=== PATIENT | male | born 1980 | race Caucasian/White ===

== ENCOUNTER 2018-07-16 09:49 | Day surgery (SDC) | payer OTHER ==
[~2018-07-16 09:49] MED LIST: Lactated Ringers 1,000 ML IV SCH; Lidocaine 1%/Sod Bicarbonate in NS 8.4% 1 ML Syringe IDERM PRN; Sodium Chloride 0.9% 10 ML Syringe FLUSH PRN
[2018-07-16] MEDS ORDERED: Bupivacaine 0.25% 30 ML SDV ONE (10:57)
[2018-07-16] MEDS ORDERED: Dexamethasone 4 MG/ML 5 ML MDV ONE (11:03)
[2018-07-16] MEDS ORDERED: ceFAZolin 1 GM Vial ONE (11:03)
[2018-07-16] MEDS ORDERED: Lidocaine 1% 6 ML ONE (11:03)
[2018-07-16] MEDS ORDERED: Lactated Ringers 1,000 ML ONE ×2 (11:03→12:53)
[2018-07-16] MEDS ORDERED: Propofol 200 MG/20 ML SDV ONE ×2 (11:03→12:00)
[2018-07-16] MEDS ORDERED: Ondansetron 4 MG/2 ML SDV ONE (11:03)
[2018-07-16] MEDS ORDERED: Ketorolac 30 MG/ML SDV ONE ×2 (11:03→13:48)
[2018-07-16] MEDS ORDERED: Midazolam 1 MG/ML 2 ML SDV ONE (11:04)
[2018-07-16] MEDS ORDERED: HYDROmorphone 0.5 MG/0.5 ML Syringe ONE ×2 (11:04→12:18)
[2018-07-16] MEDS ORDERED: fentaNYL 250 MCG/5 ML SDV ONE (11:04)
--- NOTE | 2018-07-16 11:22 | PCM.PREANE ---
Preanesthetic Assessment - Anesthesia/Transfusion/Family Hx Anesthesia History: Prior Anesthesia Without Reaction Family History of Anesthesia Reaction: No Transfusion History: No Prior Transfusion(s) Intubation History: Unknown - Review of Systems General: No Symptoms Pulmonary: No Symptoms (ETOH: 5-6 drinks/week,) Cardiovascular: No Symptoms (HTN) Gastrointestinal: No Symptoms (GERD, nondiabetic gastroparesis history of noted. ) Neurological: Tingling (right sided more but bilateral Carpal Tunnel Syndrome) Other: Reports: Liver Problems (elevated liver enzymes noted), Depression - Physical Assessment NPO Status Date: 07/15/18 NPO Status Time: 22:00 Pulse: 84 O2 Sat by Pulse Oximetry: 98 Respiratory Rate: 16 Blood Pressure: 137/89 Temperature: 36.4 C Vital Signs: Last Vital Signs Temp 36.4 C 07/16/18 09:55 Pulse 84 07/16/18 09:55 Resp 16 07/16/18 09:55 BP 137/89 07/16/18 09:55 Pulse Ox 98 07/16/18 09:55 Height: 1.8 m Weight: 96.615 kg ASA Class: 2 Mental Status: Alert & Oriented x3 Airway Class: Mallampati = 3 Dentition: Reports: Normal Dentition, Caries Thyro-Mental Finger Breadths: 3 Mouth Opening Finger Breadths: 3 ROM/Head Extension: Full Lungs: Clear to Auscultation, Normal Respiratory Effort Cardiovascular: Regular Rate, Regular Rhythm, No Murmurs - Lab Values: Laboratory Last Values MRSA (PCR) Negative 07/14/18 09:08 All lab values reviewed and noted and within acceptable ranges to proceed with scheduled procedure. - Imaging/EKG Impressions: EKG: NSR rate=87 - Allergies Allergies/Adverse Reactions: Allergies Allergy/AdvReac Type Severity Reaction Status Date / Time cranberry Allergy Airway Verified 07/15/18 12:54 Tightness - Anesthesia Plan Pre-Op Medication Ordered: None - Acknowledgements Anesthesia Type Planned: General Anesthesia Pt an Appropriate Candidate for the Planned Anesthesia: Yes Alternatives and Risks of Anesthesia Discussed w Pt/Guardian: Yes Pt/Guardian Understands and Agrees with Anesthesia Plan: Yes PreAnesthesia Questionnaire HEENT History: Reports: Impaired Vision, Other (See Below) Other HEENT History: wears glasses Cardiovascular History: Reports: Hypertension Respiratory History: Reports: None Gastrointestinal History: Reports: Other (See Below) Other Gastrointestinal History: acid reflux, gastroparesis Genitourinary History: Reports: None 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 Musculoskeletal History: Reports: Other (See Below) Other Musculoskeletal History: triceps tendon rupture Neurological History: Reports: None Psychiatric History: Reports: Depression Endocrine/Metabolic History: Reports: None Hematologic History: Reports: None Immunologic History: Reports: None Oncologic (Cancer) History: Reports: None Dermatologic History: Reports: None - Past Surgical History Head Surgeries/Procedures: Reports: None Cardiovascular Surgical History: Reports: None Respiratory Surgical History: Reports: None GI Surgical History: Reports: EGD Female Surgical History: Reports: None Male Surgical History: Reports: None Endocrine Surgical History: Reports: None Neurological Surgical History: Reports: None Musculoskeletal Surgical History: Reports: None Oncologic Surgical History: Reports: None - SUBSTANCE USE Smoking Status *Q: Never Smoker Recreational Drug Use History: No - HOME MEDS Home Medications: Home Meds Lisinopril 10 mg PO DAILY 07/15/18 [History] Ranitidine HCl [Zantac] 150 mg PO BID 07/15/18 [History] buPROPion HCl [Wellbutrin Xl] 300 mg PO DAILY 07/15/18 [History] - CURRENT (IN HOUSE) MEDS Current Meds: Current Medications Lactated Ringer's (Ringers, Lactated) 1,000 mls @ 125 mls/hr IV ASDIRECTED KRYS Stop: 07/16/18 23:00 Last Admin: 07/16/18 10:15 Dose: 125 mls/hr Lidocaine/Sodium Bicarbonate (Buffered Lidocaine 1% In Ns 8.4%) 0.25 ml IDERM ONETIME PRN PRN Reason: Prior to IV Start Stop: 07/16/18 18:00 Last Admin: 07/16/18 10:15 Dose: 0.25 ml Sodium Chloride (Saline Flush) 10 ml FLUSH ASDIRECTED PRN PRN Reason: Keep Vein Open Stop: 07/16/18 18:00 Discontinued Medications Bupivacaine HCl (Marcaine 0.25%) Confirm Administered Dose 30 ml .ROUTE .STK- MED ONE Stop: 07/16/18 10:58 Cefazolin Sodium (Ancef) Confirm Administered Dose 2 gm .ROUTE .STK-MED ONE Stop: 07/16/18 11:04 Dexamethasone (Dexamethasone) Confirm Administered Dose 20 mg .ROUTE .STK-MED ONE Stop: 07/16/18 11:04 Fentanyl (Sublimaze) Confirm Administered Dose 250 mcg .ROUTE .STK-MED ONE Stop: 07/16/18 11:05 Hydromorphone HCl (Dilaudid) Confirm Administered Dose 0.5 mg .ROUTE .STK-MED ONE Stop: 07/16/18 11:05 Lidocaine HCl (Xylocaine-Mpf 1%) Confirm Administered Dose 6 mls @ as directed .ROUTE .ST-MED ONE Stop: 07/16/18 11:04 Lactated Ringer's (Ringers, Lactated) Confirm Administered Dose 1,000 mls @ as directed .ROUTE .ST-MED ONE Stop: 07/16/18 11:04 Ketorolac Tromethamine (Toradol) Confirm Administered Dose 30 mg .ROUTE .ST- MED ONE Stop: 07/16/18 11:04 Midazolam HCl (Versed 1 Mg/Ml) Confirm Administered Dose 2 mg .ROUTE .STK-MED ONE Stop: 07/16/18 11:05 Ondansetron HCl (Zofran) Confirm Administered Dose 4 mg .ROUTE .STK-MED ONE Stop: 07/16/18 11:04 Propofol (Diprivan 20 Ml) Confirm Administered Dose 200 mg .ROUTE .STK-MED ONE Stop: 07/16/18 11:04
[2018-07-16] MEDS ORDERED: Famotidine 20 MG/2 ML SDV IVPUSH ONE (11:36)
[2018-07-16] MEDS ORDERED: Succinylcholine/Normal Saline 100 MG/5 ML Syringe ONE (11:54)
[2018-07-16] MEDS ORDERED: Rocuronium 50 MG/5 ML Vial ONE (11:54)
[2018-07-16] MEDS ORDERED: HYDROmorphone 0.5 MG/0.5 ML Syringe IVPUSH PRN (12:12)
[2018-07-16] MEDS ORDERED: diphenhydrAMINE 50 MG/ML SDV IVPUSH PRN (12:12)
[2018-07-16] MEDS ORDERED: ePHEDrine 50 MG/ML SDV IVPUSH PRN (12:12)
[2018-07-16] MEDS ORDERED: Ondansetron 4 MG/2 ML SDV IVPUSH PRN (12:12)
[2018-07-16] MEDS ORDERED: Phenylephrine 1 MG in Sodium Chloride 0.9% 10 ML IV SCH (12:15)
[2018-07-16] MEDS ORDERED: Neostigmine Methylsulfate 1 MG/ML 5 ML Syringe ONE (12:38)
[2018-07-16] MEDS ORDERED: Phenylephrine/Normal Saline 100 MCG/ML 10 ML Syringe ONE (12:46)
[2018-07-16] MEDS ORDERED: ePHEDrine/Normal Saline 25 MG/5 ML Syringe ONE (12:51)
[2018-07-16] MEDS: fentaNYL 100 MCG/2 ML SDV IVPUSH PRN ×2 (13:50→14:03)
--- NOTE | 2018-07-16 14:01 | CR ---
Left elbow: Two fluoroscopic spot views were obtained of the left elbow utilizing C-arm device. Comparison: Prior MRI left elbow exam of 06/23/18. Study shows triceps tendon repair with lucency within the olecranon process compatible with anchoring of this tendon. Fluoroscopy time is given as 6.9 seconds. Impression: 1. Procedural study showing triceps tendon reattachment. Diagnostic code #2
--- NOTE | 2018-07-16 14:07 | PCM.POSTAN ---
POST ANESTHESIA ASSESSMENT - MENTAL STATUS Mental Status: Alert, Oriented - VITAL SIGNS Pulse Rate: 94 SaO2: 94 Resp Rate: 13 Blood Pressure: 136/99 Temperature: 36.9 C - RESPIRATORY Respiratory Status: Respiratory Rate WNL, Airway Patent, O2 Saturation Stable, Supplemental Oxygen - CARDIOVASCULAR CV Status: Pulse Rate WNL, Blood Pressure Stable - GASTROINTESTINAL GI Status: No Symptoms - PAIN Pain Score: 5 - POST OP HYDRATION Hydration Status: Adequate & Stable
[2018-07-16] MEDS ORDERED: Acetaminophen/HYDROcodone 325-5 MG Tab PO PRN (14:38)
--- NOTE | 2018-07-20 07:16 | PCM.OPNOTE ---
- General Post-Op/Procedure Note Date of Surgery/Procedure: 07/16/18 Operative Procedure(s): left triceps tendon rupture repair Pre Op Diagnosis: left distal triceps tendon rupture Post-Op Diagnosis: Same Anesthesia Technique: General LMA, Local Primary Surgeon: Alan Hancock Anesthesia Provider: Zulema Reyes Senior Sales Operations Manager: Twila Costello in mLs: 10 Complications: None Condition: Good
--- NOTE | 2018-07-20 10:29 | OR ---
DATE OF OPERATION: 07/16/2018 SURGEON: Alan Hancock MD OPERATION PERFORMED: Left triceps tendon rupture repair. PREOPERATIVE DIAGNOSIS: Left distal triceps tendon rupture. POSTOPERATIVE DIAGNOSIS: Left distal triceps tendon rupture. ANESTHESIA: General LMA with local. ANESTHESIA PROVIDER: Zulema Reyes CRNA. CNC APPLICATIONS ENGINEER: Twila Costello LPN. ESTIMATED BLOOD LOSS: 10 mL. COMPLICATIONS: None. CONDITION: Stable. DESCRIPTION OF PROCEDURE: The patient was identified in the preoperative holding area. Proper site was marked and identified by the surgeon. The patient was taken back to the operating theater where after adequate anesthesia, the patient's left upper extremity was sterilely prepped and draped in the usual sterile fashion. OR time-out was performed. The patient received 2 g IV Ancef. A sterile tourniquet was then applied to left upper extremity and tourniquet was insufflated 250 mmHg after the extremity was exsanguinated. Standard curvilinear incision was made over the olecranon. This was taken down to the triceps fascia. Triceps fascia was identified as well as the triceps tendon rupture, which was more on the medial side than the lateral. At this time, a good sharp dissection was done down to the olecranon and the bony surface was roughened. Two proximal anchors were placed on the tip of the olecranon and two 4.75 mm Arthrex SwiveLock anchors were placed, loaded with FiberTape as well as FiberWire. The 4 limbs of FiberWire were then passed proximally through the tendinous tissue on the tear and the FiberTape was passed proximally. The FiberWire was then passed distally through the tendon in the tear. At this time, the FiberWire was tied to the distal anchors. Two more anchors were then placed distally. The patient was noted to have significantly sclerotic bone that were found to be in good position and now intra-articularly on both AP and lateral fluoroscopic views. Two more 4.75 mm Arthrex SwiveLock anchors were then placed and these were then tensioned. The patient had good excursion of the triceps with adequate repair. At this time, adequate saline was irrigated through the wound. 2-0 Vicryl was used subcutaneously. Nathalia used for the skin. The patient had 0.25% Marcaine injected and was placed in a posterior slab splint and sterile dressing and sent to PACU in stable condition. KAMARI /[id number]
== END 2018-07-16 16:20 | disposition home or self-care (01) ==
LOC: JD.SDS 09:49
PROVIDERS: ATTEND Orthopaedic Surgery
DX: S46.312A Strain of muscle, fascia and tendon of triceps, left arm, initial encounter (principal); I10 Essential (primary) hypertension; K21.9 Gastro-esophageal reflux disease without esophagitis; F32.9 Major depressive disorder, single episode, unspecified; W00.0XXA Fall on same level due to ice and snow, initial encounter; Z91.018 Allergy to other foods; Z79.899 Other long term (current) drug therapy
CPT/HCPCS: 24342; 76000; 87641; A9270; C1713; J0330; J0690; J1100; J1170; J1885; J2001; J2250; J2370; J2405; J2704; J2710; J3010; J3490; J7050; J7120; 01710

== ENCOUNTER 2019-12-13 16:39 | Emergency (ER) | payer OTHER ==
--- NOTE | 2019-12-13 17:18 | EDM.PDOC ---
<LiliaEllis Gudelia - Last Filed: 12/13/19 17:10> ED HPI GENERAL MEDICAL PROBLEM - General Chief Complaint: Wound Recheck Stated Complaint: SURGICAL INCISION BLEEDING Time Seen by Provider: 12/13/19 16:53 Source of Information: Reports: Patient History Limitations: Reports: No Limitations - History of Present Illness INITIAL COMMENTS - FREE TEXT/NARRATIVE: Hermes is a 39 YO male that presents to the ED with bleeding from a surgical incision. He had tricep tendon repair on December 02, 2019 in [place]. Since surgery, he has noticed small amounts of bleeding from the olecranon region of his right elbow. Blood is dark and oozing in nature. Wound only bleeds if he flexes his arm to greater than 90 degrees. He has had to change bandages about twice daily. He denies any pain, tenderness, or limited mobility of the joint. Duration: Day(s): Location: Reports: Upper Extremity, Right Worsens with: Reports: Movement - Related Data Allergies Allergy/AdvReac Type Severity Reaction Status Date / Time cranberry Allergy Airway Verified 12/13/19 16:55 Tightness Home Meds: Home Meds Lisinopril 10 mg PO DAILY 07/15/18 [History] buPROPion HCL [Wellbutrin Xl] 300 mg PO DAILY 07/15/18 [History] Escitalopram [Lexapro] 10 mg PO DAILY 12/13/19 [History] Past Medical History Other HEENT History: wears glasses Other Gastrointestinal History: acid reflux, gastroparesis Musculoskeletal History: Reports: Other (See Below) Other Musculoskeletal History: triceps tendon rupture - Past Surgical History Musculoskeletal Surgical History: Reports: Other (See Below) Other Musculoskeletal Surgeries/Procedures:: tricep tendon repair Social & Family History - Tobacco Use Smoking Status *Q: Never Smoker Second Hand Smoke Exposure: No - Caffeine Use Caffeine Use: Reports: Coffee - Recreational Drug Use Recreational Drug Use: No ED ROS GENERAL - Review of Systems Review Of Systems: See Below (Mindy) Musculoskeletal: Reports: Other (Bleed at surgical site on right elbow). Denies: Joint Pain, Joint Swelling, Muscle Pain, Muscle Stiffness Skin: Reports: Bruising (Post surgical bruise on right bicep.), Wound ED EXAM, SKIN/RASH Exam: See Below Exam Limited By: No Limitations General Appearance: Alert, No Apparent Distress Extremities: Normal Range of Motion, Redness, Other (Dark red oozing blood from surgical incision when elbow flexed past 90 degrees. ). No: Joint Swelling, Arm Pain, Increased Warmth Skin: Warm, Dry, Normal Color Departure - Departure Disposition: Home, Self-Care 01 Clinical Impression: Hemorrhage from wound - Discharge Information Instructions: How to Change Your Wound Dressing, [id number] Referrals: Laila Lockett PA-C [Primary Care Provider] - Forms: ED Department Discharge Additional Instructions: You were evaluated in the ER today regarding your bleeding from your surgical wound. This area was repaired with Dermabond, to help promote healing and hopefully stop the bleeding. Recommend you follow-up with orthopedic surgery, Dr. Hancock, for recheck of the wound and to make sure everything is getting better as expected. These call his office to get an appointment, . Please return to the ER at any time if symptoms change or worsen. Sepsis Event Note (ED) - Evaluation Sepsis Screening Result: No Definite Risk <Renée Mathias - Last Filed: 12/13/19 17:44> ED WOUND PROCEDURES - Laceration/Wound Repair Right Posterior Elbow Laceration/Wound Length In cm: 0.5 Appearance: Superficial, Clean Distal NVT: Neuro & Vascular Intact, No Tendon Injury Skin Prep: Chlorhexidine (Hibiciens), Saline Wound Exploration, Debridement, Revision: No Foreign Material Found Sterile Dressing Applied: Nurse Tetanus Status Addressed: Yes Complications: None Progress/Comments: topical Dermabond was placed on the wound to help stop the bleeding, he will follow up with his orthopedic surgeon, as he states he will be going back to [place]. Course - Vital Signs Last Recorded V/S: Last Vital Signs Temp 98.6 F 12/13/19 16:53 Pulse 78 12/13/19 16:53 Resp 16 12/13/19 16:53 BP 142/101 H 12/13/19 16:53 Pulse Ox 100 12/13/19 16:53 - Re-Assessments/Exams Free Text/Narrative Re-Assessment/Exam: 12/13/19 17:26 I have read and reviewed the student's HPI and examined the patient and agree with PRASHANTH Adkins-student. The patient's wound has a scant amount of dark red blood coming from the distal portion of the wound. Will try to apply some Dermabond to this area to see if this helps stop the bleeding, and have him follow-up with Ortho if he keeps having further issues. Departure - Departure Time of Disposition: 17:27 Condition: Good - Discharge Information *PRESCRIPTION DRUG MONITORING PROGRAM REVIEWED*: No *COPY OF PRESCRIPTION DRUG MONITORING REPORT IN PATIENT CHRISTINE: No Sepsis Event Note (ED) - Focused Exam Vital Signs: Vital Signs Temp Pulse Resp BP Pulse Ox 12/13/19 16:53 98.6 F 78 16 142/101 H 100
== END 2019-12-13 17:50 | disposition home or self-care (01) ==
LOC: JD.ED 16:39
DX: L76.21 Postprocedural hemorrhage of skin and subcutaneous tissue following a dermatologic procedure (principal); Z91.018 Allergy to other foods; Z79.899 Other long term (current) drug therapy
CPT/HCPCS: 12001; 99282; 99283